=== PATIENT | male | born 1965 | race Caucasian/White ===

== ENCOUNTER 2017-09-24 08:49 | Observation (INO) | payer OTHER ==
[~2017-09-24 08:49] MED LIST: LORA-474 PO
[2017-09-24] MEDS ORDERED: ACETAMINOPHEN/HYDROcodone 325 MG/7.5 MG TAB PO PRN (11:00)
[2017-09-24] MEDS ORDERED: LORazepam 1 MG TAB PO PRN (11:00)
[2017-09-24] MEDS ORDERED: PANTOPRAZOLE SOD 40 MG DELAYED RELEASE TAB PO SCH (11:00)
[2017-09-24] MEDS ORDERED: ONDANSETRON HCL 4 MG/2 ML VIAL IV PUSH PRN (11:00)
[2017-09-24] MEDS ORDERED: LORazepam 2 MG/ML VIAL IV PUSH PRN ×4 (11:00)
[2017-09-24] MEDS ORDERED: FLUMAZENIL 0.5 MG/5 ML VIAL IV PUSH PRN (11:00)
[2017-09-24] MEDS ORDERED: ACETAMINOPHEN 500 MG CPLT PO PRN (11:00)
[2017-09-24] MEDS ORDERED: LORazepam 2 MG TAB PO PRN (11:00)
[2017-09-24 11:43] LABS: TROPONIN I LESS THAN 0.02 NG/ML (0.02-0.05)
[2017-09-24 12:00] VITALS: PULSE 80
[2017-09-24 12:27] VITALS: BP 182/106; PULSE 76; RESP 20; TEMP 98.2; O2SAT 96
[2017-09-24 12:30] VITALS: BP 134/79; PULSE 75; TEMP 98.2; O2SAT 97
--- NOTE | 2017-09-24 13:07 | HHI.HP ---
HPI Primary Care Physician Unknown Chief Complaint Chest pain History of Present Illness This is a 52-year-old male that presents to ED in [place] to be evaluated for chest discomforts and was subsequently transported via [facility] to the chest pain center for further evaluation. Dates he has been having left-sided chest discomfort intermittently for 2 weeks. States it has not occurred every day but it has happened at least 10 times over 2 weeks. It had been lasting a few minutes at time. Describes as a pressure. No associated shortness breath, nausea, or diaphoresis. Found nothing to bring on or to worsen when he had the discomfort. He became concerned when the same type discomfort began this morning however it lasted quite longer. States it was there for about 3 hours. Otherwise is a same discomfort. Nothing to worsen or improve it this morning. Currently no chest discomfort. Denies recent illnesses. Denies fevers or chills. Cannot recall prior cardiac workup. Review of Systems General: Patient denies fevers, chills recent, and recent travel HEENT: Patient denies headache, sore throat, difficulty swallowing. Cardiovascular: Has the chest discomfort as mentioned above. Denies sensation of heart beating rapidly or irregularly. No syncope. Denies diaphoresis. Respiratory: Denies shortness of breath or inspirational chest discomfort. Denies coughing wheezing or hemoptysis. GI: Patient denies nausea, vomiting, diarrhea, abdominal pain, bloody stools. Musculoskeletal: Patient denies joint pain or edema. Denies calf pain or edema. Neurovascular: Patient denies numbness, tingling, weakness in extremities. Denies headache. Endocrine: Denies polyuria and polydipsia. Hematologic: Denies easy bruising. Skin: Denies rash or itching. Past Family Social History Allergies: Coded Allergies: No Known Allergies (Verified Allergy, Unknown, 09/24/17) Past Medical History Anxiety. Denies hypertension, hyperlipidemia, diabetes, and known CAD. Past Surgical History Noncontributory. Reported Medications Reported Meds & Active Scripts Active Reported Ativan (Lorazepam) 1 Mg Tab 0.5 Mg PO Q8H PRN Active Ordered Medications Current Medications Medications (Trade) Dose Ordered Sig/Dara Route Start Time Stop Time Status Last Admin (Tylenol) 500 mg Q4H PRN PO 09/24/17 11:00 (Red Level 7.5-325 Mg) 1 tab Q4H PRN PO 09/24/17 11:00 (Zofran Inj) 4 mg Q6H PRN IV PUSH 09/24/17 11:00 (Protonix) 40 mg DAILY PO 09/24/17 11:00 09/24/17 11:19 (Aspirin) 325 mg DAILY PO 09/25/17 09:00 (Romazicon Inj) 0.2 mg Q1M PRN IV PUSH 09/24/17 11:00 (Ativan) 1 mg Q4H PRN PO 09/24/17 11:00 (Ativan Inj) 1 mg Q4H PRN IV PUSH 09/24/17 11:00 (Ativan) 2 mg Q2H PRN PO 09/24/17 11:00 (Ativan Inj) 2 mg Q2H PRN IV PUSH 09/24/17 11:00 (Ativan Inj) 2 mg Q1H PRN IV PUSH 09/24/17 11:00 (Ativan Inj) 2 mg Q15M PRN IV PUSH 09/24/17 11:00 Family History His brother had an OH at 56 and . His father had multiple MIs. Social History Quit smoking 11 years ago. Prior to that he smoked about 1-1/2 packs of cigarettes daily for 30 years. He has on average 6-10 beers daily. Denies illicit drugs. Physical Exam Vital Signs Vital Signs Date Time Temp Pulse Resp B/P (MAP) Pulse Ox O2 Delivery O2 Flow Rate FiO2 09/24/17 12:30 98.2 75 134/79 (97) 97 09/24/17 12:27 98.2 76 20 182/106 (131) 96 09/24/17 12:00 80 Physical Exam GENERAL: This is a well-nourished, well-developed patient, in no apparent distress. Patient speaks in clear complete sentences. Patient is pleasant. HEENT: Head is atraumatic and normocephalic. Neck is supple without lymphadenopathy and trachea is midline. No JVD or carotid bruits. CARDIOVASCULAR: Regular rate and rhythm without murmurs, gallops, or rubs. RESPIRATORY: Clear to auscultation. Breath sounds equal bilaterally. No wheezes , rales, or rhonchi. Chest wall is nontender. No use of accessory muscles. GASTROINTESTINAL: Abdomen is nontender, nondistended. Abdomen soft. No obvious pulsatile mass or bruit. No CVA tenderness. Strong femoral pulses bilaterally. Normal bowel sounds in all quadrants. MUSCULOSKELETAL: Patient is moving upper and lower extremities freely. No calf tenderness or edema, no Homans sign. Strong pulses in upper and lower extremities. NEUROLOGICAL: Patient is alert and oriented. Cranial nerves 2-12 are grossly intact. No focal deficits and speech is clear. SKIN: No rash and turgor is normal. Laboratory Laboratory Tests Test 09/24/17 11:00 Total Creatine Kinase 55 Troponin I LESS THAN 0.02 Imaging No acute findings and chest x-ray. Course EKG is a sinus rhythm with incomplete right bundle branch block. No significant ST segment depressions or elevations. Caprini VTE Risk Assessment Caprini VTE Risk Assessment: No/Low Risk (score <= 1) Caprini Risk Assessment Model Point Value = 1 Point Value = 2 Point Value = 3 Point Value = 5 Age 41-60 Minor surgery BMI > 25 kg/m2 Swollen legs Varicose veins or History of unexplained or recurrent spontaneous Oral contraceptives or hormone replacement Sepsis (< 1 month) Serious lung disease, including pneumonia (< 1 month) Abnormal pulmonary function Acute myocardial infarction Congestive heart failure (< 1 month) History of inflammatory bowel disease Medical patient at bed rest Age 61-74 Arthroscopic surgery Major open surgery (> 45 min) Laparoscopic surgery (> 45 min) Malignancy Confined to bed (> 72 hours) Immobilizing plaster cast Central venous access Age >= 75 History of VTE Family history of VTE Factor V Leiden Prothrombin [id number] Lupus anticoagulant Anticardiolipin antibodies Elevated serum homocysteine Heparin-induced thrombocytopenia Other congenital or acquired thrombophilia Stroke (< 1 month) Elective arthroplasty Hip, pelvis, or leg fracture Acute spinal cord injury (< 1 month) Prophylaxis Regimen Total Risk Factor Score Risk Level Prophylaxis Regimen 0-1 Low Early ambulation 2 Moderate Order ONE of the following: *Sequential Compression Device (SCD) *Heparin 5000 units SQ BID 3-4 Higher Order ONE of the following medications: *Heparin 5000 units SQ TID *Enoxaparin/Lovenox 40 mg SQ daily (WT < 150 kg, CrCl > 30 mL/min) *Enoxaparin/Lovenox 30 mg SQ daily (WT < 150 kg, CrCl > 10-29 mL/min) *Enoxaparin/Lovenox 30 mg SQ BID (WT < 150 kg, CrCl > 30 mL/min) AND/OR *Sequential Compression Device (SCD) 5 or more Highest Order ONE of the following medications: *Heparin 5000 units SQ TID (Preferred with Epidurals) *Enoxaparin/Lovenox 40 mg SQ daily (WT < 150 kg, CrCl > 30 mL/min) *Enoxaparin/Lovenox 30 mg SQ daily (WT < 150 kg, CrCl > 10-29 mL/min) *Enoxaparin/Lovenox 30 mg SQ BID (WT < 150 kg, CrCl > 30 mL/min) AND *Sequential Compression Device (SCD) Assessment and Plan Assessment and Plan * Chest pain: Patient is to continue having serial cardiac enzymes and EKGs for ruling out purposes. He will be seen by Dr. Koroma cardiology and the chest pain center and likely undergo stress testing. Patient would be discharged to home if stress test is nonischemic with instructions to follow back with PCP and to return to ED for interval issues. Patient is stable this time. He is agreeable to this plan. Myron Jaimes Sep 24, 2017 13:07
[2017-09-24 14:45] LABS: TROPONIN I LESS THAN 0.02 NG/ML (0.02-0.05)
[2017-09-24 16:19] VITALS: BP 136/93; PULSE 68; RESP 20; TEMP 98.9; O2SAT 98
--- NOTE | 2017-09-24 16:29 | TR ---
Date Performed: 09/24/2017 Time Performed: 15:27:06 DOCTOR: Juani Koroma DRUG LIST: CLINICAL HISTORY: CHEST PAIN REASON FOR TEST: Chest pain REASON FOR ENDING: OBSERVATION: CONCLUSION: RODRÍGUEZ PROTOCOL ETT. NO CP. TEST STOPPED AFTER EXCEEDING GOAL HR SECONDARY TO SOB AND LEG FATIGUE.Maximum BR=436 % Max HR Achieved=91.0% Maximum ZV=131/84 Total Exercise Time=9:01 COMMENTS:
--- NOTE | 2017-09-24 16:42 | HHI.DCPOC ---
Discharge Care Plan Diagnosis: (1) Chest pain Goals to Promote Your Health * To prevent worsening of your condition and complications * To maintain your health at the optimal level Directions to Meet Your Goals Take your medications as prescribed Follow your dietary instruction Follow activity as directed Keep your appointments as scheduled Take your immunizations and boosters as scheduled If your symptoms worsen call your PCP, if no PCP go to Urgent Care Center or Emergency Room Smoking is Dangerous to Your Health. Avoid second hand smoke Call the 24-hour hour crisis hotline for domestic abuse at Myron Jaimes Sep 24, 2017 16:42
--- NOTE | 2017-09-24 22:07 | EKG ---
Date Performed: 09/24/2017 Time Performed: 11:03:56 PTAGE: 52 years EKG: Sinus rhythm INCOMPLETE RIGHT BUNDLE BRANCH BLOCK POSSIBLE ANTERIOR MYOCARDIAL INFARCTION ABNORMAL ECG NO PREVIOUS TRACING DOCTOR: Juani Koroma Interpretating Date/Time 09/24/2017 22:06:13
--- NOTE | 2017-09-24 22:11 | EKG ---
Date Performed: 09/24/2017 Time Performed: 13:51:43 PTAGE: 52 years EKG: Sinus rhythm INCOMPLETE RIGHT BUNDLE BRANCH BLOCK POSSIBLE ANTERIOR MYOCARDIAL INFARCTION ABNORMAL ECG Since PREVIOUS TRACING , no significant change noted PREVIOUS TRACIN09/24/2017 11.03 DOCTOR: Juani Koroma Interpretating Date/Time 09/24/2017 22:09:23
[2017-09-25] MEDS ORDERED: ASPIRIN 325 MG TAB PO SCH (09:00)
== END 2017-09-24 18:33 | disposition home or self-care (01) ==
LOC: NEDDLT 08:49 → NEDA 10:23 → NEPHCDU 10:53
PROVIDERS: ADMIT Internal Medicine Interventional Cardiology; ATTEND Internal Medicine Interventional Cardiology
DX: R07.9 Chest pain, unspecified (principal); I10 Essential (primary) hypertension; R94.31 Abnormal electrocardiogram [ECG] [EKG]; I45.10 Unspecified right bundle-branch block; Z87.891 Personal history of nicotine dependence
CPT/HCPCS: 71045; 80053; 82550; 83690; 83735; 84484; 85025; 85610; 85730; 93005; 93017; 99285; G0378